=== PATIENT | male | born 1960 | race Two or more races ===

== ENCOUNTER 2024-10-01 19:19 | Inpatient (IN) | payer MEDICAID ==
[~2024-10-01] VITALS: Ht 154.9 cm; Wt 63.5 kg
[2024-10-01 19:52] LABS: PLATELET COUNT (AUTO) 450 K/uL (152-348); RED BLOOD CELL COUNT(AUTO) 3.56 MIL/uL (4.06-5.63); RED CELL DISTRIBUTION WIDTH 15.8 % (12.1-16.2); WHITE BLOOD COUNT (AUTO) 12.0 K/uL (3.6-10.2)
[2024-10-01] MEDS ORDERED: INSULIN NPH 1,000 UNITS/10 ML VIAL SQ ONE (19:56)
[2024-10-01] MEDS: IV NS 1000 ML 1,000 ML IV ONE ×2 (19:59→21:14)
[2024-10-01] MEDS: INSULIN REGULAR, HUMAN 1000 UNIT/10 ML VIAL IV ONE ×2 (20:02→21:16)
[2024-10-01 20:07] LABS: ETHANOL < 3 MG/DL (0-10)
[2024-10-01 20:08] LABS: CREATININE 3.1 mg/dL (0.6-1.3); SODIUM SERUM 132 mmol/L (136-145); UREA NITROGEN, BLOOD 30 mg/dL (7-18)
[2024-10-01 20:10] LABS: ASPARTATE AMINOTRANSFERASE 12 U/L (15-37); TOTAL PROTEIN, SERUM 8.2 g/dL (6.4-8.2)
[2024-10-01 20:15] LABS: NT-PRO BNP 1832 pg/mL (0-125)
[2024-10-01 20:16] LABS: ACETONE, SERUM SMALL (NEGATIVE)
[2024-10-01] MEDS ORDERED: INSULIN REGULAR, HUMAN 1000 UNIT/10 ML VIAL ONE (20:33)
[2024-10-01 21:24] LABS: *BILIRUBIN,URIN NEGATIVE (NEGATIVE); *BLOOD, URINE 2+ (NEGATIVE); *CLARITY,URINE CLEAR (CLEAR); *COLOR,URINE YELLOW (YELLOW); *KETONES,URINE 1+ (NEGATIVE); *PROTEIN,URINE TRACE (NEGATIVE); *UROBILINOGEN,URINE 0.2 E.U./dl (NORMAL); LEUKOCYTE ESTERASE ,URINE NEGATIVE (NEGATIVE); NITRITE, URINE NEGATIVE (NEGATIVE)
[2024-10-01 21:28] LABS: UGLUCOSE 3+ (NEGATIVE)
[2024-10-01 21:37] LABS: *AMPHETAMINE, URINE NEGATIVE (NEGATIVE); *BARBITURATE, URINE NEGATIVE (NEGATIVE); *BENZODIAZEPINE, URINE NEGATIVE (NEGATIVE); *CANNABINOID, URINE NEGATIVE (NEGATIVE); *COCCAINE, URINE NEGATIVE (NEGATIVE); *OPIATE, URINE NEGATIVE (NEGATIVE); *PHENCYCLIDINE SCREEN,URINE NEGATIVE (NEGATIVE); FENTANYL, URINE NEGATIVE (NEGATIVE)
[2024-10-02] VITALS (61 sets, daily range): BP systolic 85–124; BP diastolic 51–97; TEMP 97.6–98.5; O2SAT 93–100
[2024-10-02] MEDS ORDERED: VANCOMYCIN 1000 MG VIAL ONE (01:00)
[2024-10-02] MEDS: VANCOMYCIN IV 1,000 MG in IV DEXTROSE 5% 250 ML IV ONE (01:24)
[2024-10-02] MEDS: INSULIN REGULAR, HUMAN 100 UNITS in IV NORMAL SALINE 100 ML IV ONE (01:25)
[2024-10-02 02:11] LABS: ASPARTATE AMINOTRANSFERASE 27.0 U/L (15-37); CREATININE 2.7 mg/dL (0.6-1.3); SODIUM SERUM 135.0 mmol/L (136-145); TOTAL PROTEIN, SERUM 7.5 g/dL (6.4-8.2); UREA NITROGEN, BLOOD 31.0 mg/dL (7-18)
[2024-10-02] MEDS ORDERED: IV 0.9% SODIUM CHLORID+ 20 KCL 1,000 ML ONE (02:24)
[2024-10-02] MEDS ORDERED: ENOXAPARIN SODIUM 40 MG/0.4 ML DISP.SYRIN SQ SCH (02:30)
[2024-10-02] MEDS ORDERED: ONDANSETRON 4 MG/2 ML VIAL IV PRN (02:30)
[2024-10-02] MEDS ORDERED: ACETAMINOPHEN 325 MG TABLET PO PRN (02:30)
[2024-10-02] MEDS: INSULIN REGULAR, HUMAN 100 UNIT in IV NORMAL SALINE 99 ML IV PRN (03:30)
[2024-10-02 04:14] LABS: ABG BASE EXCESS -8.3 mmol/L (-2.0-3.0); ABG HCO3 16.2 mmol/L (21.0-28.0); ABG PCO2 29.7 mmHg (35.0-48.0); ABG PH 7.355 (7.350-7.450); ABG PO2 103.8 mmHg (83.0-108.0); ABG SITE RIGHT RADIAL; ABG TOTAL HEMOGLOBIN 9.6 G/dL (13.5-17.5); AaDO2 97.6 mmHg; FIO2 21.0 %
[2024-10-02 04:21] LABS: PLATELET COUNT (AUTO) 328 K/uL (152-348); RED BLOOD CELL COUNT(AUTO) 3.34 MIL/uL (4.06-5.63); RED CELL DISTRIBUTION WIDTH 15.2 % (12.1-16.2); WHITE BLOOD COUNT (AUTO) 14.1 K/uL (3.6-10.2)
[2024-10-02] MEDS ORDERED: IV D5W-0.45% NS +20 KCL 1,000 ML IV ONE (05:46)
[2024-10-02] MEDS: IV D5W-0.45% NS +20 KCL 1,000 ML IV SCH (06:00)
[2024-10-02] MEDS: BLOOD SUGAR DIAGNOSTIC 1 EACH STRIP VI SCH ×2 (06:00→14:25)
[2024-10-02] MEDS: IV D5W-0.45% NS +20 KCL 1,000 ML IV PRN (06:54)
[2024-10-02 08:04] LABS: CREATININE 2.6 mg/dL (0.6-1.3); GLUCOSE,RANDOM 289.0 mg/dL (70-115); SODIUM SERUM 139.0 mmol/L (136-145); UREA NITROGEN, BLOOD 27.0 mg/dL (7-18)
[2024-10-02] MEDS: HEPARIN SODIUM,PORCINE 5,000 UNITS/ML VIAL SQ SCH (09:11)
[2024-10-02] MEDS ORDERED: IV D5W-0.45% NS +20 KCL 1,000 ML IV PRN (10:21)
[2024-10-02] MEDS: MAGNESIUM SULFATE/D5W 100 ML IV SCH (10:22)
[2024-10-02] MEDS ORDERED: IV 0.9% SODIUM CHLORID+ 20 KCL 1,000 ML IV PRN (10:30)
[2024-10-02 10:56] LABS: CREATININE 2.5 mg/dL (0.6-1.3); SODIUM SERUM 138.0 mmol/L (136-145); UREA NITROGEN, BLOOD 24.0 mg/dL (7-18)
[2024-10-02] MEDS ORDERED: LEVALBUTEROL HCL NEB 0.63 MG/3 ML NEBU NEB PRN (12:30)
[2024-10-02] MEDS: IV NS 1000 ML 1,000 ML IV PRN (12:48)
[2024-10-02] MEDS ORDERED: DEXTROSE 50% 50 ML DISP.SYRIN IV PRN (13:45)
[2024-10-02 14:48] LABS: CREATININE 3.0 mg/dL (0.6-1.3); SODIUM SERUM 135.0 mmol/L (136-145); UREA NITROGEN, BLOOD 35.0 mg/dL (7-18)
[2024-10-02] MEDS: AZITHROMYCIN IV 250 MG in IV DEXTROSE 5% 250 ML IV SCH (15:19)
[2024-10-02] MEDS ORDERED: NAPH1POW3 PO (15:59)
[2024-10-02] MEDS ORDERED: AZIT500V8 IV (15:59)
[2024-10-02] MEDS ORDERED: ONDA4VIA23 IV (15:59)
[2024-10-02] MEDS ORDERED: INSU100V28 SQ (15:59)
[2024-10-02] MEDS ORDERED: DEXT50DI8 IV (15:59)
[2024-10-02] MEDS ORDERED: ACET325T53 PO (15:59)
[2024-10-02] MEDS ORDERED: LEVA0.635 NEB (15:59)
[2024-10-02] MEDS ORDERED: CEFT1VIA15 IV (15:59)
[2024-10-02] MEDS ORDERED: HEPA50007 SQ (15:59)
[2024-10-02] MEDS ORDERED: Blood Sugar Diagnostic VI (15:59)
[2024-10-02] MEDS ORDERED: INSU100V7 SQ (16:00)
[2024-10-02] MEDS: NEUTRA PHOS PACKET PO ONE (18:11)
[2024-10-02] MEDS: INSULIN REGULAR, HUMAN 1000 UNIT/10 ML VIAL SQ PRN (18:21)
== END 2024-10-02 18:15 | disposition short-term general hospital (02) | DRG 420 ==
LOC: ER 19:42 → CCU 10-02 00:30
PROVIDERS: ADMIT Registered Nurse Psychiatric/Mental Health; ATTEND Registered Nurse Psychiatric/Mental Health
DX: E11.10 Type 2 diabetes mellitus with ketoacidosis without coma (principal); N17.0 Acute kidney failure with tubular necrosis; J85.1 Abscess of lung with pneumonia; E43 Unspecified severe protein-calorie malnutrition; K22.0 Achalasia of cardia; E88.09 Other disorders of plasma-protein metabolism, not elsewhere classified; R62.7 Adult failure to thrive; S09.90XS Unspecified injury of head, sequela; X58.XXXS Exposure to other specified factors, sequela; H54.61 Unqualified visual loss, right eye, normal vision left eye; F10.21 Alcohol dependence, in remission; L94.0 Localized scleroderma [morphea]; Z68.26 Body mass index [BMI] 26.0-26.9, adult; E11.51 Type 2 diabetes mellitus with diabetic peripheral angiopathy without gangrene; Z89.422 Acquired absence of other left toe(s); E83.42 Hypomagnesemia; E11.22 Type 2 diabetes mellitus with diabetic chronic kidney disease; N18.9 Chronic kidney disease, unspecified; D64.9 Anemia, unspecified; E86.0 Dehydration; Z87.891 Personal history of nicotine dependence; J98.4 Other disorders of lung; E87.70 Fluid overload, unspecified
CPT/HCPCS: 36415; 36600; 71045; 71250; 76770; 82803; 83690; 83735; 84100; 84132; 84295; 84484; 84520; 85025; 87040; 87070; A4606; A4663; G0378; G0480; J0456; J0696; J1644; J1815; J3373; J3475; J7040; J7050; J7060